=== PATIENT | female | born 1960 | race Caucasian/White ===

== ENCOUNTER 2016-09-26 09:48 | Observation (INO) | payer OTHER ==
[~2016-09-26] VITALS: Ht 162.6 cm; Wt 93.7 kg
[2016-09-26] MEDS ORDERED: GLAT1INJ SQ (10:31)
[2016-09-26] MEDS ORDERED: PRLSR20 PO (10:31)
[2016-09-26] MEDS ORDERED: IBUP-1050 PO (10:32)
--- NOTE | 2016-09-26 11:02 | DIAGNOSTIC IMAGING REPORT ---
SINGLE VIEW CHEST CLINICAL HISTORY: Atypical chest pain. FINDINGS: An AP, portable, upright chest radiograph is obtained. No prior studies are available for comparison at the time of dictation. The examination is degraded by portable technique, large body habitus, and patient rotation. The cardiomediastinal silhouette is unremarkable. The lungs and pleural spaces are clear. No pneumothorax is seen. The bony thorax is grossly intact. IMPRESSION: No active disease in the chest. Electronically signed by: Akash King M.D. 09/26/2016 11:01 AM Dictated Date/Time: 09/26/2016 11:00 AM
[2016-09-26 11:10] LABS: BASO % 0.6 %; BASO ABS # 0.05 K/uL (0-0.2); COMPLETE YES; EOS % 3.5 %; HEMATOCRIT 32.4 % (37-47); IG% 0.1 %; LYMPH % 16.8 %; LYMPH ABS # 1.33 K/uL (1.2-3.4); MEAN CELL VOLUME 81.6 fL (80-100); MEAN CORPUSCULAR HEMOGLOBIN 28.7 pg (25-34); MEAN CORPUSCULAR HGB CONC 35.2 g/dl (32-36); MEAN PLATELET VOLUME 9.6 fL (7.4-10.4); MONO % 8.5 %; NEUT % 70.5 %; PLATELET COUNT 238 K/uL (130-400); RED BLOOD COUNT 3.97 M/uL (4.2-5.4); WHITE BLOOD COUNT 7.92 K/uL (4.8-10.8)
[2016-09-26 11:14] LABS: POINT OF CARE PRO-BNP 171 pg/ml (0-900)
[2016-09-26 11:18] LABS: BUN/CREATININE RATIO 19.7 (10-20); CALCIUM 8.5 mg/dl (8.5-10.1); CREATININE 0.67 mg/dl (0.60-1.20)
[2016-09-26 11:19] LABS: INR 0.9 (0.9-1.1); PARTIAL THROMBOPLASTIN RATIO 0.9
[2016-09-26 11:27] LABS: CKMB/CK RATIO 1.7 (0-3.0); THYROID STIMULATING HORMONE 2.13 uIu/ml (0.300-4.500)
[2016-09-26] MEDS ORDERED: OPTIRAY 320 IV PRN (12:45)
--- NOTE | 2016-09-26 13:24 | DIAGNOSTIC IMAGING REPORT ---
CT ANGIOGRAM OF THE CHEST CLINICAL HISTORY: Atypical chest and back pain. COMPARISON STUDY: Chest x-ray dated 09/26/2016. TECHNIQUE: Following the IV administration of 120 cc of Optiray 320, CT angiogram of the chest was performed from the upper abdomen to the thoracic inlet utilizing the pulmonary embolus protocol. Images are reviewed in the axial, sagittal, and coronal planes. 3-D MIPS images are created and assessed. IV contrast was administered without complication. CT DOSE: 615.67 mGy.cm FINDINGS: Thyroid: Imaged portions of the thyroid gland are normal in size and attenuation. Thoracic aorta: The thoracic aorta is normal in caliber and demonstrates standard 3-vessel arch anatomy. No dissection is seen. Pulmonary vasculature: The pulmonary trunk is normal in caliber. There are no filling defects identified in main, lobar, or segmental pulmonary branches to suggest pulmonary embolus. Heart: The heart is normal in size and configuration, and without pericardial effusion. Lungs and pleural spaces: A small calcified granuloma is incidentally noted in the right lower lobe. The lungs and pleural spaces are otherwise clear noting dependent atelectasis. The trachea and central airways are patent. Mediastinum: There is no mediastinal lymphadenopathy. Kalee: Clear. Axillae: There is no axillary lymphadenopathy. Upper abdomen: There is evidence of hepatic steatosis. Fatty sparing is noted adjacent to the gallbladder fossa. A calcified splenic granulomas is noted. Skeletal structures: The skeletal structures are osteopenic. Arthritic change is noted in the shoulders. No lytic or blastic bony lesions are seen. IMPRESSION: 1. There is no evidence of pulmonary embolus in the main, lobar, or segmental pulmonary arteries. 2. The lungs are clear. 3. Hepatic steatosis. Electronically signed by: Akash King M.D. 09/26/2016 1:23 PM Dictated Date/Time: 09/26/2016 1:16 PM
[2016-09-26] MEDS ORDERED: ASPIRIN 81 MG CHEW PO STA (14:28)
[2016-09-26] MEDS ORDERED: ONDANSETRON INJ 2 MG/ML 2 ML VIAL IV PRN (14:30)
[2016-09-26] MEDS ORDERED: NITROGLYCERIN 0.4 MG SL PER TAB CHARGE SL PRN (14:30)
[2016-09-26 14:59] VITALS: Ht 162.6 cm; Wt 93.7 kg
[2016-09-26] MEDS ORDERED: GLATIRAMER ACETATE 40 MG SQ SCH (15:00)
[2016-09-26] MEDS ORDERED: IV FLUIDS COMPLETED PRN (15:00)
[2016-09-26] MEDS ORDERED: AMLODIPINE BESYLATE 5 MG TAB PO ONE (15:00)
--- NOTE | 2016-09-26 15:01 | History and Physical ---
History & Physical Date & Time of Service: Sep 26, 2016 at 14:35 Chief Complaint: Back Pain,Swelling Of Foot/Leg, Chest Pains Primary Care Physician: Arlene Barron PA-C History of Present Illness Source: patient, hospital records This is a 56 y/o female with PMH of multiple sclerosis who presents to the ED with chest pain x 4 weeks. Patient states pain occurs when she is lying down and lasts throughout the night keeping her awake. She states initially pain was in the central chest with radiation to her bilateral shoulder blades, but last night the pain was only in her back. Pain is worse with deep inspiration so took shallower breaths with the pain. The pain is described as burning in the chest and squeezing between the shoulder blades. Last night she felt "spacy" and shaky with the pain. She was prescribed omeprazole in clinic which she took a few times without relief. She was also taking ibuprofen which did improve the pain. She states currently she is having burning pain in the chest, non radiating, rated 1/10 and this developed about 30 minutes ago in the ER. No other symptoms except frontal SCHULTZ describe as pressure. Pt reports recent BLLE edema which worsens throughout the day and resolves overnight. She notes RIOS after climbing 2 flights of stairs. She denies fever, chills, diaphoresis, dizziness, vision change, URI symptoms, cough, SOB, reflux, nausea, vomiting, abdominal pain, diarrhea, calf pain. No injury or heavy lifting. She reports having a normal stress test several years ago. Denies hx of HTN, DM, HL, cardiac disorder. No recent travel. Pt's BP was elevated to 190s ->150s systolic in ER. In clinic her BP runs 110s-130s/60s-70s this past month. Past Medical/Surgical History Medical Problems: (1) Bilateral tubal ligation Status: Resolved (2) Multiple sclerosis Status: Chronic Surgical Problems: (1) H/O tubal ligation Status: Chronic Family History Diabetes mellitus MOTHER FH: heart disease MOTHER (onset mid 70s) FHx: cancer FHx: gallbladder disease Hypertension FATHER Social History Smoking Status: Former Smoker (smoked in her teens) Alcohol Use: occasionally (rare) Drug Use: none Marital Status: Housing status: lives with family Occupational Status: employed Multi-Drug Resistant Organisms History of MDRO: No Allergies Coded Allergies: No Known Allergies (Unverified , 09/26/16) Home Medications Scheduled Glatiramer Acetate (Copaxone), 40 MG SQ 3XWK Omeprazole (Prilosec), 20 MG PO DAILY Scheduled PRN Ibuprofen (Advil), 600-800 MG PO Q6H PRN for Pain Review of Systems Ten point review of systems performed with pertinent positives and negatives noted in HPI. Physical Exam Vital Signs Date Time Temp Pulse Resp B/P Pulse Ox O2 Delivery O2 Flow Rate FiO2 09/26/16 13:57 72 09/26/16 13:55 78 18 152/66 96 Room Air 09/26/16 12:15 69 18 157/83 98 Room Air 09/26/16 11:18 68 20 133/85 96 Room Air 09/26/16 10:23 Room Air 09/26/16 10:17 89 09/26/16 09:55 36.6 73 16 192/86 96 General Appearance: WD/WN, no apparent distress, + pertinent finding (alert pleasant 56 y/o female, no distress, at bedside) Head: normocephalic, atraumatic Eyes: normal inspection, PERRL, EOMI ENT: hearing grossly normal, pharynx normal Neck: supple, no JVD, no carotid bruits, trachea midline Respiratory/Chest: chest non-tender, lungs clear, normal breath sounds, no respiratory distress, no accessory muscle use Cardiovascular: regular rate, rhythm, no murmur, normal peripheral pulses Abdomen/GI: normal bowel sounds, non tender, soft Back: + pertinent finding (no thoracic paraspinal muscle tenderness) Extremities/Musculoskelatal: no calf tenderness, no pedal edema, + pertinent finding (no pain with bilateral shoulder ROM) Neurologic/Psych: alert, normal mood/affect, oriented x 3, + pertinent finding (grossly nonfocal) Skin: normal color, warm/dry, no rash (no rash on the chest) Diagnostics Laboratory Results Results Past 24 Hours Test 09/26/16 10:20 09/26/16 10:46 09/26/16 10:53 Range/Units White Blood Count 7.92 4.8-10.8 K/uL Red Blood Count 3.97 4.2-5.4 M/uL Hemoglobin 11.4 12.0-16.0 g/dL Hematocrit 32.4 37-47 % Mean Corpuscular Volume 81.6 80-100 fL Mean Corpuscular Hemoglobin 28.7 25-34 pg Mean Corpuscular Hemoglobin Concent 35.2 32-36 g/dl Platelet Count 238 130-400 K/uL Mean Platelet Volume 9.6 7.4-10.4 fL Neutrophils (%) (Auto) 70.5 % Lymphocytes (%) (Auto) 16.8 % Monocytes (%) (Auto) 8.5 % Eosinophils (%) (Auto) 3.5 % Basophils (%) (Auto) 0.6 % Neutrophils # (Auto) 5.58 1.4-6.5 K/uL Lymphocytes # (Auto) 1.33 1.2-3.4 K/uL Monocytes # (Auto) 0.67 0.11-0.59 K/uL Eosinophils # (Auto) 0.28 0-0.5 K/uL Basophils # (Auto) 0.05 0-0.2 K/uL RDW Standard Deviation 40.1 36.4-46.3 fL RDW Coefficient of Variation 13.5 11.5-14.5 % Immature Granulocyte % (Auto) 0.1 % Immature Granulocyte # (Auto) 0.01 0.00-0.02 K/uL Prothrombin Time 10.0 9.0-12.0 SECONDS Prothromb Time International Ratio 0.9 0.9-1.1 Activated Partial Thromboplast Time 23.8 21.0-31.0 SECONDS Partial Thromboplastin Ratio 0.9 Sodium Level 142 136-145 mmol/L Potassium Level 4.0 3.5-5.1 mmol/L Chloride Level 110 98-107 mmol/L Carbon Dioxide Level 24 21-32 mmol/L Anion Gap 8.0 3-11 mmol/L Blood Urea Nitrogen 13 7-18 mg/dl Creatinine 0.67 0.60-1.20 mg/dl Est Creatinine Clear Calc Drug Dose 104.1 ml/min Estimated GFR () 113.1 Estimated GFR (Non- 97.6 BUN/Creatinine Ratio 19.7 10-20 Random Glucose 82 70-99 mg/dl Calcium Level 8.5 8.5-10.1 mg/dl Total Bilirubin 0.4 0.2-1 mg/dl Direct Bilirubin 0.1 0-0.2 mg/dl Aspartate Amino Transf (AST/SGOT) 14 15-37 U/L Alanine Aminotransferase (ALT/SGPT) 22 12-78 U/L Alkaline Phosphatase 61 45-117 U/L Total Creatine Kinase 77 26-192 U/L Creatine Kinase MB 1.3 0.5-3.6 ng/ml Creatine Kinase MB Ratio 1.7 0-3.0 Total Protein 7.1 6.4-8.2 gm/dl Albumin 3.7 3.4-5.0 gm/dl Lipase 204 73-393 U/L Thyroid Stimulating Hormone (TSH) 2.130 0.300-4.500 uIu/ml Bedside D-Dimer > 450 0-450 ng/mlFEU Bedside Troponin I 0.260 0-0.045 ng/ml UM-[id number]-[id number]-Type Natriuretic Peptide 171 0-900 pg/ml Diagnostic Radiology SINGLE VIEW CHEST CLINICAL HISTORY: Atypical chest pain. FINDINGS: An AP, portable, upright chest radiograph is obtained. No prior studies are available for comparison at the time of dictation. The examination is degraded by portable technique, large body habitus, and patient rotation. The cardiomediastinal silhouette is unremarkable. The lungs and pleural spaces are clear. No pneumothorax is seen. The bony thorax is grossly intact. IMPRESSION: No active disease in the chest. CT ANGIOGRAM OF THE CHEST CLINICAL HISTORY: Atypical chest and back pain. COMPARISON STUDY: Chest x-ray dated 09/26/2016. TECHNIQUE: Following the IV administration of 120 cc of Optiray 320, CT angiogram of the chest was performed from the upper abdomen to the thoracic inlet utilizing the pulmonary embolus protocol. Images are reviewed in the axial, sagittal, and coronal planes. 3-D MIPS images are created and assessed. IV contrast was administered without complication. CT DOSE: 615.67 mGy.cm FINDINGS: Thyroid: Imaged portions of the thyroid gland are normal in size and attenuation. Thoracic aorta: The thoracic aorta is normal in caliber and demonstrates standard 3-vessel arch anatomy. No dissection is seen. Pulmonary vasculature: The pulmonary trunk is normal in caliber. There are no filling defects identified in main, lobar, or segmental pulmonary branches to suggest pulmonary embolus. Heart: The heart is normal in size and configuration, and without pericardial effusion. Lungs and pleural spaces: A small calcified granuloma is incidentally noted in the right lower lobe. The lungs and pleural spaces are otherwise clear noting dependent atelectasis. The trachea and central airways are patent. Mediastinum: There is no mediastinal lymphadenopathy. Kalee: Clear. Axillae: There is no axillary lymphadenopathy. Upper abdomen: There is evidence of hepatic steatosis. Fatty sparing is noted adjacent to the gallbladder fossa. A calcified splenic granulomas is noted. Skeletal structures: The skeletal structures are osteopenic. Arthritic change is noted in the shoulders. No lytic or blastic bony lesions are seen. IMPRESSION: 1. There is no evidence of pulmonary embolus in the main, lobar, or segmental pulmonary arteries. 2. The lungs are clear. 3. Hepatic steatosis. EKG initial EKG- NSR 75 bpm, no ST or T wave abnormalities repeat EKG- NSR 71 bpm, no ST or T wave abnormalities Impression Assessment and Plan CHEST PAIN Rule out ACS; only risk factor is +family history (mother had later onset CAD in 70s) CXR unremarkable; D dimer elevated; CTA neg for PE Initial troponin (POC) elevated to 0.26 EKG x2 with no evidence of ischemia Give aspirin 325 mg chewable Trend serial cardiac enzymes Repeat EKG in am Check lipid panel in am May need stress test Consult cardiology HYPERTENSION No history of HTN; BP runs 110s-130s/60s-70s in clinic recently BP elevated to 190s systolic -> 150s in ER Elevated BP may have contributed to elevated troponin Will give amlodipine 5 mg PO x 1 Monitor BP MULTIPLE SCLEROSIS Stable on Copaxone GERD Continue omeprazole DVT PROPHYLAXIS Lovenox SQ DISPOSITION Observation to telemetry Follows with Dr. Callaway for primary care Patient seen in collaboration with Dr. Montoya. Please see his addendum. ADDENDUM: This is a 56 year old female with PMH of MS presents with chest pain that is usually worse at night; states that the pain is on her shoulders and goes across her chest - has been occurring intermittently, but usually at night for the past few months. Currently pain free, no other symptoms noted at this time. GEN: no acute distress CVS: RRR, +S1, S2 LUNGS: CTA b/l, no wheezing ABD: soft, NT/ND EXT: no edema Chest Pain r/o ACS mild elevation of troponin, possibly related to elevated blood pressure no EKG changes will trend cardiac enzymes echo pending cardiology consult Elevated Blood Pressure, no diagnosis of HTN given CCB, monitor BP outpatient BP check, can adjust medications as outpatient VTE Prophylaxis VTE Risk Assessment Done? Y/N: Yes Risk Level: Low
[2016-09-26 16:10] VITALS: BP 146/88; PULSE 87; TEMP 36.7; O2SAT 98
[2016-09-26 17:08] LABS: CKMB/CK RATIO 1.7 (0-3.0)
[2016-09-26 19:47] VITALS: BP 143/85; PULSE 84; TEMP 36.6; O2SAT 94
[2016-09-26 20:00] VITALS: O2SAT 94
[2016-09-26] MEDS: ACETAMINOPHEN 325 MG TAB PO PRN (20:37)
[2016-09-26] MEDS ORDERED: ENOXAPARIN 40 MG/0.4 ML SYR SC SCH (21:00)
[2016-09-26 23:05] LABS: CKMB/CK RATIO 1.9 (0-3.0)
[2016-09-27] VITALS (7 sets, daily range): BP systolic 142–149; BP diastolic 69–82; PULSE 72–84; TEMP 36.7–36.9; O2SAT 94–98
[2016-09-27] MEDS ORDERED: MoRPHine SULFATE 4 MG/ML 1 ML CARP\\VIAL IV PRN (02:00)
[2016-09-27] MEDS ORDERED: TRAMADOL HCL 50 MG TAB PO PRN (02:00)
[2016-09-27 04:30] LABS: CHOLESTEROL/HDL RATIO 3.1
[2016-09-27] MEDS ORDERED: PANTOprazole SOD 40 MG TAB PO SCH (09:00)
[2016-09-27] MEDS: ACETAMINOPHEN 325 MG TAB PO PRN (09:58)
--- NOTE | 2016-09-27 10:17 | Cardiology Consultation ---
Cardiology Consultation Date of Consultation: Sep 27, 2016 Requesting Physician: Mcknezie Grider PA-C Attending Forming Fixer: Dr. Nguyen (Zhane Alexandre PA-C) History of Present Illness Patient is a 56 year old female with past medical history significant for multiple sclerosis which she follows with neurology and appears well controlled without recent flares, presented to [facility] yesterday with complaints of intermittent back and chest pain x 4 weeks awakening her from sleep, described as a tightness between her shoulder blades, radiating to her chest. Only occurs at night when she is supine. Lasts most of the night and she is unable to sleep. She saw PCP last week for symptoms and was prescribed Prilosec for possible GERD. She states she took several doses but felt her feet were swelling due to medication. She began Ibuprofen over the weekend and took 800 mg every night, which mildly aided her symptoms. She notes mild SOB during these "attacks" due to significant pain. No diaphoresis, palpitations, dizziness. No orthopnea, PND. She recently lifted/flipped mattress, prior to her symptoms starting. She moved her mattress back to original position without improvement in her nightly symptoms. ? Musculoskeletal Injury with lifting. She denies exertional chest or back pain. Able to complete daily activities, walk, climb steps without recurrent symptoms during the day. Only occurs at night when laying supine. She denies history of cardiovascular disease, arrhythmias, murmurs, vascular disease, stroke or DM. No history of alcohol or tobacco abuse. No history of hypertension. She had a normal exercise stress echo in 2009. She states mother had history of NV x2 in 70's and congestive heart failure. Son with bicuspid aortic valve. No family history of known premature coronary artery disease or sudden cardiac . IN ER she was found to have hypertension and treated with amlodipine 5 mg. SL nitro also given without significant improvement. POC troponin mildly elevated at .2. Repeat cardiac enzymes Normal x2. BP trending down. EKG x4 have been unremarkable, despite significant back pain. CT negative for PE At time of consult, patient sitting comfortably in bed. Pain resolved, had recurrent symptoms last night when trying to sleep. EKG unremarkable. SL nitro without significant improvement. Family is at her bedside. Other than current headache, which she attributes to lack of sleep, she is feeling well. No shortness of breath, dizziness, palpitations. Edema improved. No fever, cough, chills. (Zhane Alexandre PA-C) History Past Medical History: 1. Multiple Sclerosis Past Surgical History: 1. Tubal ligation Social History: No history of alcohol or tobacco abuse. . 4 grown children. Family History: mother with history of NV age 70's, CHF. No known history of premature coronary artery disease or sudden . (Zhane Alexandre PA-C) Review Of Systems General: The patient denies weight change, night sweats, fever, chills. Head: The patient denies headache and prior head trauma. Cardiovascular: The patient denies chest pain or chest discomfort, dyspnea on exertion, palpitations, PND, orthopnea, edema, spontaneous shortness of breath, syncope and near syncope. Pulmonary: The patient denies cough, wheeze, pleurisy, hemoptysis, sputum, and excessive snoring. Gastrointestinal: The patient denies nausea, vomiting, diarrhea, constipation, bloating, hematemesis, hematochezia, and abdominal pain. Skin: The patient denies diaphoresis and rash. Musculoskeletal: The patient denies joint pain, joint swelling, myalgia, neck pain and prior injuries. Neurological: The patient denies prior stroke and seizures (Zhane Alexandre PA-C) Allergies Coded Allergies: No Known Allergies (Unverified , 09/26/16) Medications Reported Home Medications Medications Dose Route/Sig Max Daily Dose Days Date Category Dose Instructions Advil (Ibuprofen) 200 Mg Tab 600-800 Mg PO Q6H PRN 09/26/16 Reported Prilosec (Omeprazole) 20 Mg Capcr 20 Mg PO DAILY 09/26/16 Reported Copaxone (Glatiramer Acetate) 40 Mg/Ml Inj 40 Mg SQ 3XWK 09/26/16 Reported MON WED. AND FRI. IN THE EVENING (Zhane Alexandre PA-C) Physical Exam Vital Signs (Last 8hrs): Last 8 Hrs Date Time Temp Pulse Resp B/P Pulse Ox O2 Delivery O2 Flow Rate FiO2 09/27/16 08:15 Room Air 09/27/16 07:31 36.9 73 18 144/78 97 09/27/16 04:27 36.7 84 20 142/82 98 Room Air 09/27/16 04:00 94 Room Air 09/27/16 01:53 36.8 72 18 143/80 97 General Appearance: Alert and Oriented x3. NAD. Head: Normocephalic Atraumatic. Eyes: PERRLA, EOMI, conjunctiva and sclera clear Neck: Supple. No carotid bruits noted. No JVD. No HJD. Respiratory: Breath sounds clear to auscultation bilaterally. No w/r/r. Cardiovascular: Reg rate and rhythm. S1 and S2 noted. No murmurs, rubs, gallops. PMI non displace. Abdomen: Normal bowel sounds, soft nontender. no abdominal bruits. Extremities: No edema, no clubbing or cyanosis. distal pulses 2/4 bilaterally. Neuro: No focal deficits. Psychiatric: Normal affect. (Zhane Alexandre, DWIGHT) Data Last 24 Hours Test 09/26/16 10:20 09/26/16 10:46 09/26/16 10:53 09/26/16 16:33 White Blood Count 7.92 K/uL Red Blood Count 3.97 M/uL Hemoglobin 11.4 g/dL Hematocrit 32.4 % Mean Corpuscular Volume 81.6 fL Mean Corpuscular Hemoglobin 28.7 pg Mean Corpuscular Hemoglobin Concent 35.2 g/dl Platelet Count 238 K/uL Mean Platelet Volume 9.6 fL Neutrophils (%) (Auto) 70.5 % Lymphocytes (%) (Auto) 16.8 % Monocytes (%) (Auto) 8.5 % Eosinophils (%) (Auto) 3.5 % Basophils (%) (Auto) 0.6 % Neutrophils # (Auto) 5.58 K/uL Lymphocytes # (Auto) 1.33 K/uL Monocytes # (Auto) 0.67 K/uL Eosinophils # (Auto) 0.28 K/uL Basophils # (Auto) 0.05 K/uL RDW Standard Deviation 40.1 fL RDW Coefficient of Variation 13.5 % Immature Granulocyte % (Auto) 0.1 % Immature Granulocyte # (Auto) 0.01 K/uL Prothrombin Time 10.0 SECONDS Prothromb Time International Ratio 0.9 Activated Partial Thromboplast Time 23.8 SECONDS Partial Thromboplastin Ratio 0.9 Sodium Level 142 mmol/L Potassium Level 4.0 mmol/L Chloride Level 110 mmol/L Carbon Dioxide Level 24 mmol/L Anion Gap 8.0 mmol/L Blood Urea Nitrogen 13 mg/dl Creatinine 0.67 mg/dl Est Creatinine Clear Calc Drug Dose 104.1 ml/min Estimated GFR () 113.1 Estimated GFR (Non- 97.6 BUN/Creatinine Ratio 19.7 Random Glucose 82 mg/dl Calcium Level 8.5 mg/dl Total Bilirubin 0.4 mg/dl Direct Bilirubin 0.1 mg/dl Aspartate Amino Transf (AST/SGOT) 14 U/L Alanine Aminotransferase (ALT/SGPT) 22 U/L Alkaline Phosphatase 61 U/L Total Creatine Kinase 77 U/L 65 U/L Creatine Kinase MB 1.3 ng/ml 1.1 ng/ml Creatine Kinase MB Ratio 1.7 1.7 Troponin I 0.019 ng/ml 0.019 ng/ml Total Protein 7.1 gm/dl Albumin 3.7 gm/dl Lipase 204 U/L Thyroid Stimulating Hormone (TSH) 2.130 uIu/ml Bedside D-Dimer > 450 ng/mlFEU Bedside Troponin I 0.260 ng/ml OS-Dsg-M-Type Natriuretic Peptide 171 pg/ml Test 09/26/16 22:30 09/27/16 02:12 Total Creatine Kinase 68 U/L Creatine Kinase MB 1.3 ng/ml Creatine Kinase MB Ratio 1.9 Troponin I 0.029 ng/ml 0.021 ng/ml Activated Partial Thromboplast Time 26.0 SECONDS Partial Thromboplastin Ratio 1.0 Triglycerides Level 78 mg/dl Cholesterol Level 141 mg/dl HDL Cholesterol 46 mg/dl LDL Cholesterol, Calculated 79 mg/dl VLDL Cholesterol, Calculated 16 mg/dl Cholesterol/HDL Ratio 3.1 Imaging: Chest xray on admission: IMPRESSION: No active disease in the chest. Chest CT: IMPRESSION: 1. There is no evidence of pulmonary embolus in the main, lobar, or segmental pulmonary arteries. 2. The lungs are clear. 3. Hepatic steatosis. EKG: On admission - Normal sinus rhythm at 75 bpm Normal ECG No previous ECGs available Serial EKG's x 3 with recurrent chest pain NSR without ischemic changes. No changes from previous Telemetry reviewed: NSR, no arrhythmias (Zhane Alexandre, PAMaria Isabel) Assessment & Plan 1. Back pain/chest pain -initial POC troponin mildly elevated in setting of hypertension -repeat cardiac enzymes negative x2 -Serial EKG's with CP, no ischemic changes. -symptoms are non exertional suggesting non cardiac -Patient states she has no limitations to walking, so will refer for exercise stress echo for further evaluation of atypical chest pain -If stress is normal, consider GI or musculoskeletal etiology/work up 2. hypertension - -elevated on admission -no history of hypertension -on review of outpatient readings, well controlled -improved after one dose amlodipine -monitor Case discussed with Dr. Nguyen. Will follow and further recommendations pending results of exercise stress echo this AM. (Zhane Alexandre, PA-C) Cardiology Attending Physician: Patient seen and examined at the bedside. Denies CP or SOB. C/o mid thoracic and left scapular back pain x4 weeks at night. Pain awakens patient from sleep. Worse when lying on her left side. Currently pain free. BP improved, however, remains mildly elevated. Denies orthopnea, PND, palpitations, syncope or near syncope. Reports 2 days of LE edema after taking omeprazole. Offers no other complaints at this time. PE: VSS. Gen: NAD, AAo x 3. Neck: No JVD, No HJR, No carotid bruit. Heart: regular, normal S1S2, no Murmur, rub, or gallop. Lungs: Clear B/L, No R/R/W. Abd : Soft, NT, ND, Normal BS. Ext: trace b/L pedal edema. +B/L varicose veins. Neuro: No focal deficit. A/P: Agree with above PAMaria Isabel history, physical exam, assessment and plan. Complete resting 2D echocardiogram pending. Will order exercise stress echocardiography. Follow BP. Further recommendations pending review of stress echo. Thierry Nguyen DO, FACC (Everardo Nguyen, )
[2016-09-27] MEDS ORDERED: PERFLUTREN LIPID MICROSPHERE (DEFINITY) IV ONE (11:49)
--- NOTE | 2016-09-27 13:33 | Progress Note ---
Subjective Date of Service: Sep 27, 2016. Subjective Pt evaluation today including: conversation w/ patient, physical exam, lab review, review of studies, review of inpatient medication list Saw/examined the patient in room 285 She had her stress test, which was negative still has some back pain, cervical neck pain denies chest pain/shortness of breath Review of Systems Constitutional: No chills, No fever Respiratory: No cough, No dyspnea at rest, No dyspnea on exertion, No hemoptysis, No shortness of breath, No sputum, No wheezing Cardiac: No chest pain, No edema, No palpitations Abdomen: No diarrhea, No nausea, No pain, No vomiting Musculoskeletal: + joint pain (back pain), + muscle pain (cervical/thoracic muscle spasm) Heme: No abnormal bleeding/bruising Medications Current Inpatient Medications Medications (Trade) Dose Ordered Sig/Jules Route Start Time Stop Time Status Last Admin Dose Admin Ioversol (Optiray 320) 125 ml UD PRN IV 09/26/16 12:45 09/30/16 12:44 Enoxaparin Sodium (Lovenox Inj) 40 mg Q24H SC 09/26/16 21:00 10/26/16 20:59 Acetaminophen (Tylenol Tab) 650 mg Q4H PRN PO 09/26/16 14:30 10/26/16 14:29 09/27/16 09:58 650 MG Ondansetron HCl (Zofran Inj) 4 mg Q6H PRN IV 09/26/16 14:30 10/26/16 14:29 Nitroglycerin (Nitrostat Tab) 0.4 mg UD PRN SL 09/26/16 14:30 10/26/16 14:29 09/27/16 01:57 0.4 MG Miscellaneous (Iv Fluids Completed) 1 ea PRN PRN N/A 09/26/16 15:00 09/26/17 14:59 Pantoprazole Sodium (Protonix Tab) 40 mg QAM PO 09/27/16 09:00 10/27/16 08:59 Miscellaneous Information (Order Awaiting Action) 1 ea QS N/A 09/27/16 00:00 10/27/16 00:00 Morphine Sulfate (MoRPHine SULFATE INJ) 4 mg Q3H PRN IV 09/27/16 02:00 10/11/16 01:59 Tramadol HCl (Ultram Tab) 25 mg Q6H PRN PO 09/27/16 02:00 10/27/16 01:59 09/27/16 06:42 25 MG Objective Vital Signs Date Time Temp Pulse Resp B/P Pulse Ox O2 Delivery O2 Flow Rate FiO2 09/27/16 12:17 Room Air 09/27/16 08:15 Room Air 09/27/16 07:31 36.9 73 18 144/78 97 09/27/16 04:27 36.7 84 20 142/82 98 Room Air 09/27/16 04:00 94 Room Air 09/27/16 01:53 36.8 72 18 143/80 97 09/27/16 00:23 36.8 78 20 149/69 97 Room Air 09/27/16 00:00 94 Room Air 09/26/16 20:00 94 Room Air 09/26/16 19:47 36.6 84 20 143/85 94 Room Air 09/26/16 16:10 36.7 87 16 146/88 98 Room Air 09/26/16 15:47 78 20 148/74 98 09/26/16 15:30 71 20 148/74 98 Room Air 09/26/16 14:59 Room Air 09/26/16 13:57 72 09/26/16 13:55 78 18 152/66 96 Room Air Physical Exam General Appearance: no apparent distress Respiratory/Chest: chest non-tender, lungs clear, normal breath sounds, no respiratory distress, no accessory muscle use Cardiovascular: regular rate, rhythm, no edema, no murmur Abdomen: normal bowel sounds, non tender, soft Extremities: + pertinent finding (painful ROM of back) Laboratory Results Last 24 Hours Test 09/26/16 16:33 09/26/16 22:30 09/27/16 02:12 Total Creatine Kinase 65 U/L 68 U/L Creatine Kinase MB 1.1 ng/ml 1.3 ng/ml Creatine Kinase MB Ratio 1.7 1.9 Troponin I 0.019 ng/ml 0.029 ng/ml 0.021 ng/ml Activated Partial Thromboplast Time 26.0 SECONDS Partial Thromboplastin Ratio 1.0 Triglycerides Level 78 mg/dl Cholesterol Level 141 mg/dl HDL Cholesterol 46 mg/dl LDL Cholesterol, Calculated 79 mg/dl VLDL Cholesterol, Calculated 16 mg/dl Cholesterol/HDL Ratio 3.1 Assessment and Plan This is a 56 year old female with PMH of MS presents with back and chest pain that is usually worse at night Chest Pain, more likely musculoskeletal/back pain 3/ patient had a stress echo today; no significant findings resting echo pending no recurrence of chest pain once echo done, d/c home 3 mild elevation of troponin, possibly related to elevated blood pressure no EKG changes will trend cardiac enzymes echo pending cardiology consult Back Pain will prescribe naproxen and flexeril outpatient PCP f/u if back pain persists, may need imaging Elevated Blood Pressure, no diagnosis of HTN given CCB, monitor BP outpatient BP check, can adjust medications as outpatient Multiple Sclerosis Stable on Copaxone DVT ppx Lovenox
[2016-09-27] MEDS ORDERED: CYCL5TAB PO (13:36)
[2016-09-27] MEDS ORDERED: NAPR500T3 PO (13:36)
[2016-09-27] MEDS ORDERED: AMLO-110 PO (13:37)
--- NOTE | 2016-09-27 13:40 | EXERCISE STRESS ECHO ---
*NOTICE TO RECEIVING CONSTITUTION PARTY AGENCY This information is strictly Confidential and protected under [place] law. [place] law prohibits you from making any further disclosure of this information unless further disclosure is expressly permitted by the written consent of the person to whom it pertains or is authorized by law. A general authorization for the release of medical or other information is not sufficient for this purpose. Hospital accepts no responsibility if the information is made available to any other person, INCLUDING THE PATIENT. Interpretation Summary * Name: MARVIN PEREIRA Study Date: 09/27/2016 10:33 AM BP: 150/64 mmHg * Patient Location: [facility]\S\N285\S\1 HR: 75 * : 1960 (M/d/yyyy) Gender: Female Height: 64 in * Age: 56 yrs Ethnicity: [place] Weight: 206 lb * Ordering Physician: Zhane Alexandre * Referring Physician: No Doctor, Assigned * Performed By: Erik Ulloa RCS * * Reason For Study: Chest pain * BSA: 2.0 m2 * STRESS STUDY: Normal exercise stress echocardiogram. No echocardiographic evidence of myocardial ischemia having achieved heart rate adequate for diagnostic purposes. Equivocal ECG changes as described below. * -- Conclusions -- * Ejection Fraction = 60-65%. * There is normal left ventricular wall thickness. * Pulse wave TDI of the anterior and posterior mitral annulas demonstrates normal LV relaxation * There is trace tricuspid regurgitation. * Doppler findings do not suggest pulmonary hypertension. Procedure Details * ECHOEX, CPT #[id number] * ECHO COLOR FLOW, CPT #[id number] * ECHO DOPPLER, CPT #[id number] * A contrast injection of Definity was performed to improve assessment of LV function. * Contrast was injected into an intravenous site in the left arm. * One vial of Definity ultrasound contrast was diluted in normal saline to a total volume of 10 ml. A total of '4' ml of solution was administered during imaging. * Lot # [id number] of Definity utilized for procedure. * Expiration date . * The attending nurse who injected the contrast agent was Aleksey Harper RN. Left Ventricle * The left ventricle is normal in size. * There is normal left ventricular wall thickness. * Ejection Fraction = 60-65%. * The left ventricular ejection fraction increases normally with stress. The left ventricular end-systolic cavity size reduces post-stress (normal response). The left ventricular wall motion with stress is normal. * Left ventricular systolic function is normal. * Resting wall motion: Normal. Stress wall motion: Appropriate increase in Left ventricular systolic function and decrease in cavity size. No stress induced segmental wall motion abnormalities. Right Ventricle * The right ventricle is normal in size and function. Atria * The left atrial size is normal. * Right atrial size is normal. * No ASD detected; PFO is not assessed. Mitral Valve * The mitral valve is normal. * There is no mitral valve stenosis. * There is trace mitral regurgitation. Tricuspid Valve * The tricuspid valve is normal. * There is no tricuspid stenosis. * There is trace tricuspid regurgitation. * Doppler findings do not suggest pulmonary hypertension. Aortic Valve * The aortic valve is trileaflet. * No hemodynamically significant valvular aortic stenosis. * No aortic regurgitation is present. Pulmonic Valve * The pulmonic valve is not well visualized. Great Vessels * The aortic root is normal size. * Normal IVC diameter with normal inspiratory variation. Pericardium * There is no pericardial effusion. Stress Parameters * Normal baseline electrocardiogram. * Stress ECG: Equivocal 1-2mm upsloping ST depressions in leads II, III, AVF, and V6. * The stress portion of this study was personally supervised by the undersigned interpreting physician. * Rest heart rate was '75' BPM. * Rest blood pressure was '150/64' * Maximum heart rate achieved was 148 bpm. * Maximum heart rate was 90 % of maximum age-predicted heart rate. * Maximum blood pressure was '213/61' * Total exercise time was '5:29' * Maximum exercise MET level achieved was '7.0' METS * Maximum treadmill speed was '2.5' miles per hour. * Maximum treadmill elevation was '12'% grade. * Exercise was terminated due to 'fatigue after achieving tartget heart rate' * The patient exhibited a hypertensive response with stress. Left Ventricular Diastolic Function * Pulse wave TDI of the anterior and posterior mitral annulas demonstrates normal LV relaxation MMode 2D Measurements and Calculations IVSd 1.0 cm IVSs 1.3 cm LVIDd 4.5 cm LVIDs 2.7 cm LVPWd 0.88 cm LVPWs 1.2 cm IVS/LVPW 1.2 FS 39.9 % EDV(Teich) 91.1 ml ESV(Teich) 26.7 ml EF(Teich) 70.7 % EDV(cubed) 89.4 ml ESV(cubed) 19.4 ml EF(cubed) 78.3 % % IVS thick 27.5 % % LVPW thick 39.3 % LV mass(C)d 142.5 grams LV mass(C)dI 71.9 grams/m\S\2 LV mass(C)s 103.3 grams LV mass(C)sI 52.1 grams/m\S\2 CO(Teich) 4.8 l/min CI(Teich) 2.4 l/min/m\S\2 SV(Teich) 64.4 ml SI(Teich) 32.5 ml/m\S\2 CO(cubed) 5.2 l/min CI(cubed) 2.6 l/min/m\S\2 SV(cubed) 70.0 ml SI(cubed) 35.3 ml/m\S\2 Ao root diam 3.1 cm Ao root area 7.6 cm\S\2 ACS 1.8 cm LA dimension 3.3 cm LA/Ao 1.1 LVAd ap4 33.5 cm\S\2 LVLd ap4 8.4 cm EDV(MOD-sp4) 111.0 ml LVAs ap4 17.2 cm\S\2 LVLs ap4 6.6 cm ESV(MOD-sp4) 38.0 ml EF(MOD-sp4) 65.8 % LVAd ap2 31.0 cm\S\2 LVLd ap2 8.6 cm EDV(MOD-sp2) 94.0 ml LVAs ap2 16.1 cm\S\2 LVLs ap2 7.0 cm ESV(MOD-sp2) 35.0 ml EF(MOD-sp2) 62.8 % CO(MOD-sp4) 5.4 l/min CI(MOD-sp4) 2.7 l/min/m\S\2 SV(MOD-sp4) 73.0 ml SI(MOD-sp4) 36.9 ml/m\S\2 CO(MOD-sp2) 4.4 l/min CI(MOD-sp2) 2.2 l/min/m\S\2 SV(MOD-sp2) 59.0 ml SI(MOD-sp2) 29.8 ml/m\S\2 Doppler Measurements and Calculations MV E max melissa 85.7 cm/sec MV A max melissa 72.0 cm/sec MV E/A 1.2 MV P1/2t max melissa 112.9 cm/sec MV P1/2t 59.2 msec MVA(P1/2t) 3.7 cm\S\2 MV dec slope 558.4 cm/sec\S\2 MV dec time 0.21 sec Ao V2 max 168.3 cm/sec Ao max PG 11.3 mmHg Ao max PG (full) 2.8 mmHg LV V1 max PG 8.5 mmHg LV V1 max 145.9 cm/sec PA V2 max 110.2 cm/sec PA max PG 4.9 mmHg PI max melissa 141.2 cm/sec PI max PG 8.0 mmHg PI dec slope 138.8 cm/sec\S\2 PI P1/2t 297.9 msec TR max melissa 242.4 cm/sec
--- NOTE | 2016-09-27 13:44 | Discharge Instructions ---
Discharge Instructions Admission Reason for Admission: Chest Pain Discharge Discharge Diagnosis / Problem: Chest Pain, not ACS; more likely Back Pain; HTN Discharge Goals Goal(s): Decrease discomfort, Improve function, Diagnostic testing, Therapeutic intervention Activity Recommendations Activity Limitations: resume your previous activity . Instructions / Follow-Up Instructions / Follow-Up Please follow-up with Dr. Callaway on October 03 @ 1:50PM * You will be started on Norvasc for blood pressure - blood pressure check as an outpatient * You will be started on Naproxen and Flexeril for back pain/muscle spasms - only take as needed - do not drive while taking Flexeril - may need outpatient imagining if back pain persists * May need outpatient 2D resting echo - this could not be completed in the hospital in a timely manner Current Hospital Diet Patient's current hospital diet: AHA Diet (Heart Healthy) Discharge Diet Recommended Diet: Regular Diet Pending Studies Studies pending at discharge: yes List of pending studies: echocardiogram Laboratory Results Lipid Panel Test 09/27/16 02:12 Range/Units Triglycerides Level 78 0-150 mg/dl Cholesterol Level 141 0-200 mg/dl HDL Cholesterol 46 mg/dl Cholesterol/HDL Ratio 3.1 LDL Cholesterol, Calculated 79 mg/dl Medical Emergencies . Who to Call and When: Medical Emergencies: If at any time you feel your situation is an emergency, please call 911 immediately. . Non-Emergent Contact Non-Emergency issues call your: Primary Care Provider . . "Provider Documentation" section prepared by Steve Montoya. VTE Core Measure Inpt VTE Proph given/why not?: Enoxaparin (Lovenox)SQ
--- NOTE | 2016-09-27 13:47 | Discharge Summary ---
Discharge Summary Date of Service Sep 27, 2016. Discharge Summary Admission Date: Sep 26, 2016 at 14:30 Discharge Date: Sep 27, 2016 Discharge Disposition: Home Principal Diagnosis: Chest Pain - negative stress test Back Pain HTN Medication Reconciliation New Medications: Amlodipine (Norvasc) 5 Mg Tab 5 MG PO DAILY for 30 Days, #30 TAB Cyclobenzaprine Hcl (Flexeril) 5 Mg Tab 1 TAB PO HS PRN for Muscle Spasms for 10 Days, #10 TAB Naproxen (Naproxen) 500 Mg Tab 1 TAB PO BID for 10 Days, #20 TAB 0 Refills Continued Medications: Glatiramer Acetate (Copaxone) 40 Mg/Ml Inj 40 MG SQ 3XWK MON WED. AND FRI. IN THE EVENING Omeprazole (Prilosec) 20 Mg Capcr 20 MG PO DAILY, CAP Discontinued Medications: Ibuprofen (Advil) 200 Mg Tab 600-800 MG PO Q6H PRN for Pain, TAB Admission Information HPI (per Admitting provider): This is a 56 y/o female with PMH of multiple sclerosis who presents to the ED with chest pain x 4 weeks. Patient states pain occurs when she is lying down and lasts throughout the night keeping her awake. She states initially pain was in the central chest with radiation to her bilateral shoulder blades, but last night the pain was only in her back. Pain is worse with deep inspiration so took shallower breaths with the pain. The pain is described as burning in the chest and squeezing between the shoulder blades. Last night she felt "spacy" and shaky with the pain. She was prescribed omeprazole in clinic which she took a few times without relief. She was also taking ibuprofen which did improve the pain. She states currently she is having burning pain in the chest, non radiating, rated 1/10 and this developed about 30 minutes ago in the ER. No other symptoms except frontal SCHULTZ describe as pressure. Pt reports recent BLLE edema which worsens throughout the day and resolves overnight. She notes RIOS after climbing 2 flights of stairs. She denies fever, chills, diaphoresis, dizziness, vision change, URI symptoms, cough, SOB, reflux, nausea, vomiting, abdominal pain, diarrhea, calf pain. No injury or heavy lifting. She reports having a normal stress test several years ago. Denies hx of HTN, DM, HL, cardiac disorder. No recent travel. Pt's BP was elevated to 190s ->150s systolic in ER. In clinic her BP runs 110s-130s/60s-70s this past month. Physical Exam (per Admitting): General Appearance: WD/WN, no apparent distress, + pertinent finding (alert pleasant 56 y/o female, no distress, at bedside) Head: normocephalic, atraumatic Eyes: normal inspection, PERRL, EOMI ENT: hearing grossly normal, pharynx normal Neck: supple, no JVD, no carotid bruits, trachea midline Respiratory/Chest: chest non-tender, lungs clear, normal breath sounds, no respiratory distress, no accessory muscle use Cardiovascular: regular rate, rhythm, no murmur, normal peripheral pulses Abdomen/GI: normal bowel sounds, non tender, soft Back: + pertinent finding (no thoracic paraspinal muscle tenderness) Extremities/Musculoskelatal: no calf tenderness, no pedal edema, + pertinent finding (no pain with bilateral shoulder ROM) Neurologic/Psych: alert, normal mood/affect, oriented x 3, + pertinent finding (grossly nonfocal) Skin: normal color, warm/dry, no rash (no rash on the chest) Hospital Course This is a 56 year old female with PMH of MS presents with back and chest pain that is usually worse at night Chest Pain, more likely musculoskeletal/back pain 3/2 patient had a stress echo today; no significant findings resting echo pending no recurrence of chest pain once echo done, d/c home 3/ mild elevation of troponin, possibly related to elevated blood pressure no EKG changes will trend cardiac enzymes echo pending cardiology consult Back Pain will prescribe naproxen and flexeril outpatient PCP f/u if back pain persists, may need imaging Elevated Blood Pressure, no diagnosis of HTN given CCB, monitor BP outpatient BP check, can adjust medications as outpatient Multiple Sclerosis Stable on Copaxone DVT ppx Lovenox Total time spent on discharge = 45 minutes This includes examination of the patient, discharge planning, medication reconciliation, and communication with other providers. Discharge Instructions Please follow-up with Dr. Callaway on October 03 @ 1:50PM * You will be started on Norvasc for blood pressure - blood pressure check as an outpatient * You will be started on Naproxen and Flexeril for back pain/muscle spasms - only take as needed - do not drive while taking Flexeril - may need outpatient imagining if back pain persists * May need outpatient resting 2D echo
--- NOTE | 2016-09-27 23:32 | EMERGENCY ROOM VISIT NOTE ---
History Report prepared by Meche: Nilda Ang Under the Supervision of: Dr. Andrew Correia M.D. First contact with patient: 10:35 Chief Complaint: CHEST PAIN Stated Complaint: BACK PAIN,SWELLING OF FOOT/LEG, CHEST PAINS History of Present Illness The patient is a 56 year old female who presents to the Emergency Room with complaints of constant bilateral shoulder blade pain starting about 4 weeks ago and worsening 3 days ago. The pain radiates to the middle of her back in between her shoulder blades. The pain only occurs at night. She does not have any pain during the day. She has worsening pain with lying down and with breathing. She reports increased gassiness. She denies any increase in belching or burping. She was prescribed Prilosec by her PCP without relief. She has been taking antacid without relief. She also notes having bilateral lower and upper extremity swelling worse on the left side starting a few days ago. She denies any lifting, trauma, or straining. She denies nausea, vomiting, and any other complaints. She has a family history of gallbladder disease. She denies any personal history of cholecystectomy. She has a history of multiple sclerosis. Source of History: patient, spouse/significant other Onset: about 4 weeks ago Position: other (bilateral shoulder blade) Timing: constant, worsening Modifying Factors (Worsening): breathing, other (lying down) Modifying Factors (Relieving): other (Prilosec and antacid without relief) Associated Symptoms: No nausea, No vomiting Review of Systems See HPI for pertinent positives & negatives. A total of 10 systems reviewed and were otherwise negative. Past Medical & Surgical Medical Problems: (1) Bilateral tubal ligation (2) Chest pain (3) Multiple sclerosis Surgical Problems: (1) H/O tubal ligation Old medical records were reviewed. Nurse's notes were reviewed and I agree with. Denies history cardiac disease or pulmonary disease Family History Diabetes mellitus MOTHER FH: heart disease MOTHER (onset mid 70s) FHx: cancer FHx: gallbladder disease Hypertension FATHER Social History Smoking Status: Former Smoker Alcohol Use: none Marital Status: Occupation Status: employed Current/Historical Medications Scheduled Amlodipine (Norvasc), 5 MG PO DAILY Glatiramer Acetate (Copaxone), 40 MG SQ 3XWK Naproxen (Naproxen), 1 TAB PO BID Omeprazole (Prilosec), 20 MG PO DAILY Scheduled PRN Cyclobenzaprine Hcl (Flexeril), 1 TAB PO HS PRN for Muscle Spasms Allergies Coded Allergies: No Known Allergies (Unverified , 09/26/16) Physical Exam Vital Signs Date Time Temp Pulse Resp B/P Pulse Ox O2 Delivery O2 Flow Rate FiO2 09/26/16 13:57 72 09/26/16 13:55 78 18 152/66 96 Room Air 09/26/16 12:15 69 18 157/83 98 Room Air 09/26/16 11:18 68 20 133/85 96 Room Air 09/26/16 10:23 Room Air 09/26/16 10:17 89 09/26/16 09:55 36.6 73 16 192/86 96 Physical Exam General: Non-ill appearing, middle aged female, in no acute distress. HEENT: Normal cephalic atraumatic. Pupils are equal round and reactive to light. Sclera are anicteric. Extraocular movements are intact. Oropharynx is pink with moist mucous membranes. No swelling of the mouth lips or tongue. Neck: Supple with a midline trachea. No meningeal signs or stiffness, no JVD or bruits. No Stridor. Chest: Clear to auscultation bilaterally. No wheezes or rhonchi. No increased work of breathing. Heart: regular rate and rhythm. Abdomen: Soft nontender, nondistended without rebound guarding or rigidity. Extremities: No cyanosis clubbing or edema. No calf tenderness or assymetry Spine/Back. Non tender to palpation. No CVA tenderness Skin: Good turgor without rashes. Neurologic exam: Cranial nerves two through 12 are intact. Motor and sensation are intact and symmetrical throughout. Medical Decision & Procedures ER Provider Diagnostic Interpretation: X-ray results as stated below per interpretation by me and the radiologist: SINGLE VIEW CHEST CLINICAL HISTORY: Atypical chest pain. FINDINGS: An AP, portable, upright chest radiograph is obtained. No prior studies are available for comparison at the time of dictation. The examination is degraded by portable technique, large body habitus, and patient rotation. The cardiomediastinal silhouette is unremarkable. The lungs and pleural spaces are clear. No pneumothorax is seen. The bony thorax is grossly intact. IMPRESSION: No active disease in the chest. Electronically signed by: Akash King M.D. 09/26/2016 11:01 AM Dictated Date/Time: 09/26/2016 11:[address] results as stated below per my review and radiologist interpretation: CT ANGIOGRAM OF THE CHEST CLINICAL HISTORY: Atypical chest and back pain. COMPARISON STUDY: Chest x-ray dated 09/26/2016. TECHNIQUE: Following the IV administration of 120 cc of Optiray 320, CT angiogram of the chest was performed from the upper abdomen to the thoracic inlet utilizing the pulmonary embolus protocol. Images are reviewed in the axial, sagittal, and coronal planes. 3-D MIPS images are created and assessed. IV contrast was administered without complication. CT DOSE: 615.67 mGy.cm FINDINGS: Thyroid: Imaged portions of the thyroid gland are normal in size and attenuation. Thoracic aorta: The thoracic aorta is normal in caliber and demonstrates standard 3-vessel arch anatomy. No dissection is seen. Pulmonary vasculature: The pulmonary trunk is normal in caliber. There are no filling defects identified in main, lobar, or segmental pulmonary branches to suggest pulmonary embolus. Heart: The heart is normal in size and configuration, and without pericardial effusion. Lungs and pleural spaces: A small calcified granuloma is incidentally noted in the right lower lobe. The lungs and pleural spaces are otherwise clear noting dependent atelectasis. The trachea and central airways are patent. Mediastinum: There is no mediastinal lymphadenopathy. Kalee: Clear. Axillae: There is no axillary lymphadenopathy. Upper abdomen: There is evidence of hepatic steatosis. Fatty sparing is noted adjacent to the gallbladder fossa. A calcified splenic granulomas is noted. Skeletal structures: The skeletal structures are osteopenic. Arthritic change is noted in the shoulders. No lytic or blastic bony lesions are seen. IMPRESSION: 1. There is no evidence of pulmonary embolus in the main, lobar, or segmental pulmonary arteries. 2. The lungs are clear. 3. Hepatic steatosis. Electronically signed by: Akash King M.D. 09/26/2016 1:23 PM Dictated Date/Time: 09/26/2016 1:16 PM Laboratory Results 09/26/16 10:20 Red Blood Count 3.97, Mean Corpuscular Volume 81.6, Mean Corpuscular Hemoglobin 28.7, Mean Corpuscular Hemoglobin Concent 35.2, Mean Platelet Volume 9.6, Neutrophils (%) (Auto) 70.5, Lymphocytes (%) (Auto) 16.8, Monocytes (%) (Auto) 8.5, Eosinophils (%) (Auto) 3.5, Basophils (%) (Auto) 0.6, Neutrophils # (Auto) 5.58, Lymphocytes # (Auto) 1.33, Monocytes # (Auto) 0.67, Eosinophils # (Auto) 0.28, Basophils # (Auto) 0.05 09/26/16 10:20 Test 09/26/16 10:20 09/26/16 10:53 White Blood Count 7.92 K/uL (4.8-10.8) Red Blood Count 3.97 M/uL (4.2-5.4) Hemoglobin 11.4 g/dL (12.0-16.0) Hematocrit 32.4 % (37-47) Mean Corpuscular Volume 81.6 fL (80-100) Mean Corpuscular Hemoglobin 28.7 pg (25-34) Mean Corpuscular Hemoglobin Concent 35.2 g/dl (32-36) Platelet Count 238 K/uL (130-400) Mean Platelet Volume 9.6 fL (7.4-10.4) Neutrophils (%) (Auto) 70.5 % Lymphocytes (%) (Auto) 16.8 % Monocytes (%) (Auto) 8.5 % Eosinophils (%) (Auto) 3.5 % Basophils (%) (Auto) 0.6 % Neutrophils # (Auto) 5.58 K/uL (1.4-6.5) Lymphocytes # (Auto) 1.33 K/uL (1.2-3.4) Monocytes # (Auto) 0.67 K/uL (0.11-0.59) Eosinophils # (Auto) 0.28 K/uL (0-0.5) Basophils # (Auto) 0.05 K/uL (0-0.2) RDW Standard Deviation 40.1 fL (36.4-46.3) RDW Coefficient of Variation 13.5 % (11.5-14.5) Immature Granulocyte % (Auto) 0.1 % Immature Granulocyte # (Auto) 0.01 K/uL (0.00-0.02) Prothrombin Time 10.0 SECONDS (9.0-12.0) Prothromb Time International Ratio 0.9 (0.9-1.1) Anion Gap 8.0 mmol/L (3-11) Est Creatinine Clear Calc Drug Dose 104.1 ml/min Estimated GFR () 113.1 Estimated GFR (Non- 97.6 BUN/Creatinine Ratio 19.7 (10-20) Calcium Level 8.5 mg/dl (8.5-10.1) Total Bilirubin 0.4 mg/dl (0.2-1) Direct Bilirubin 0.1 mg/dl (0-0.2) Aspartate Amino Transf (AST/SGOT) 14 U/L (15-37) Alanine Aminotransferase (ALT/SGPT) 22 U/L (12-78) Alkaline Phosphatase 61 U/L (45-117) Total Protein 7.1 gm/dl (6.4-8.2) Albumin 3.7 gm/dl (3.4-5.0) Lipase 204 U/L (73-393) Thyroid Stimulating Hormone (TSH) 2.130 uIu/ml (0.300-4.500) Bedside D-Dimer > 450 ng/mlFEU (0-450) Bedside Troponin I 0.260 ng/ml (0-0.045) EU-Kio-T-Type Natriuretic Peptide 171 pg/ml (0-900) Laboratory studies as stated above per my review. Medications Administered Medications (Trade) Dose Ordered Sig/Jules Route Start Time Stop Time Status Last Admin Dose Admin Aspirin (Aspirin Chew) 324 mg NOW STAT PO 09/26/16 14:28 09/26/16 14:37 DC 09/26/16 14:44 324 MG Acetaminophen (Tylenol Tab) 650 mg Q4H PRN PO 09/26/16 14:30 09/27/16 14:16 DC 09/27/16 09:58 650 MG Nitroglycerin (Nitrostat Tab) 0.4 mg UD PRN SL 09/26/16 14:30 09/27/16 14:16 DC 09/27/16 01:57 0.4 MG ECG Indication: back/shoulder pain Rate (beats per minute): 75 Rhythm: normal sinus Findings: no acute ischemic change, no ectopy Comparison ECG Date: no prior available ED Course 1035: Past medical records reviewed. The patient was evaluated in room C06, and a complete history and physical examination were performed. 1158: I reevaluated the patient who is doing well. She will perform an ambulatory trial. 1325: The patient failed her ambulatory trial. I discussed the results and treatment plan with the patient. She verbalized agreement of the treatment plan. The patient will be evaluated for further management. 1348: I discussed the patient's case with Juliette Grider PA-C with [facility]. Medical Decision Differential diagnosis includes but is not limited to musculoskeletal, GERD, PE , cardiac disease, aortic disease, infection, spinal process. This patient comes in as described above. She was placed in room C6. She's been having back pain at night and her shoulders blades. She looks well and is a is asymptomatic at present with no chest pain. Sensitive workup was done and evaluated from a cardiac, pulmonary embolic and other etiology standpoint. Chest x-ray does not show any evidence of congestive heart failure pneumonia or pneumothorax . her EKG is nonischemic however her troponin is mildly elevated. She has no acute electrolyte or metabolic abnormalities. She has no significant anemia. She's had nothing to suggest sepsis or infection. Her d- dimer was elevated. I did a chest CT and she no evidence of PE or other intrathoracic abnormalities including aneurysm. She was given aspirin. Given the fact that her troponin is mildly elevated , [facility] think she needs to be admitted to rule out any atypical cardiac presentation. I have consulted the hospitalist group. They saw her in the ER and will admit her for these measures. Consults Time Called: 1323 Consulting Physician: Juliette Grider PA-C with [facility] Returned Call: [phone] I discussed the patient's case with Juliette Grider PA-C with [facility]. Impression Primary Impression: Back pain Additional Impression: Elevated troponin Scribe Attestation The scribe's documentation has been prepared under my direction and personally reviewed by me in its entirety. I confirm that the note above accurately reflects all work, treatment, procedures, and medical decision making performed by me. Departure Information Dispostion Being Evaluated By Hospitalist Prescriptions Amlodipine (Norvasc) 5 Mg Tab 5 MG PO DAILY for 30 Days, #30 TAB Prov: Steve Montoya, DO 09/27/16 Cyclobenzaprine Hcl (FLEXERIL) 5 Mg Tab 1 TAB PO HS Y for Muscle Spasms for 10 Days, #10 TAB Prov: Steve Montoya, DO 09/27/16 Naproxen (NAPROXEN) 500 Mg Tab 1 TAB PO BID for 10 Days, #20 TAB 0 Refills Prov: Steve Montoya, 09/27/16 Referrals Arlene Barron PA-C (PCP) Patient Instructions My [facility] Problem Qualifiers
== END 2016-09-27 14:16 | disposition home or self-care (01) ==
LOC: ENRESERVDT → ENRESERVTM → C.EDB 09:49 → C.MED 14:30
PROVIDERS: ADMIT Family Medicine; ATTEND Family Medicine
DX: R07.9 Chest pain, unspecified (principal); M54.9 Dorsalgia, unspecified; R03.0 Elevated blood-pressure reading, without diagnosis of hypertension; R78.89 Finding of other specified substances, not normally found in blood; R79.1 Abnormal coagulation profile; G35 Multiple sclerosis; K21.9 Gastro-esophageal reflux disease without esophagitis; Z51.81 Encounter for therapeutic drug level monitoring; Z79.899 Other long term (current) drug therapy; Z87.891 Personal history of nicotine dependence; Z82.49 Family history of ischemic heart disease and other diseases of the circulatory system; Z83.3 Family history of diabetes mellitus